=== PATIENT | male | born 1950 ===

== ENCOUNTER → 2018-08-24 | Day surgery (SDC) | payer MEDICARE, BC ==
[~2018-08-24] MED LIST: Dextrose 5%-0.45% NaCl 1,000 ML IV SCH; Midazolam 1 MG/ML 2 ML SDV IV ONE; Midazolam 1 MG/ML 2 ML SDV ONE; fentaNYL 100 MCG/2 ML SDV IV ONE; fentaNYL 100 MCG/2 ML SDV ONE
--- NOTE | 2018-08-24 18:07 | OR ---
DATE: 08/24/2018 PREOPERATIVE DIAGNOSIS: Personal history of prior colon polyps. POSTOPERATIVE DIAGNOSIS: Personal history of prior colon polyps. PROCEDURE: Total colonoscopy with biopsy, excision of small rectal polyp. ANESTHESIA: Conscious sedation. SPECIMEN: Rectal polyp. FINDINGS: He had 1 small 2 mm rectal polyp and has internal hemorrhoids and a few scattered sigmoid diverticula which should be of no specific consequence. RECOMMENDATION: Followup colonoscopy 5 years. INDICATION FOR PROCEDURE: This 68-year-old male has had prior colon polyps. PROCEDURE IN DETAIL: After adequate preparation, a colonoscope was inserted into the rectum this was easily passed all the way to the cecum. Confirmation of the cecum was made by visualization of the ileocecal valve on palpation in the right lower quadrant. The bowel prep was very good. On withdrawal of the scope, the only abnormality noted were a few scattered diverticula throughout the colon, mostly in the left to the sigmoid side. However, in the rectum, he does have 1 small polyp on the inferior rectal valve. This was taken off using a biopsy cup forceps and extracting this with 2 biopsy bites. He does have some internal hemorrhoids. Also, no other gross abnormalities were noted. Air was suctioned from the colon, and the scope removed. [facility] /[id number]
== END ==
LOC: DL.ENDO 09:02
PROVIDERS: ATTEND Surgery
DX: Z12.11 Encounter for screening for malignant neoplasm of colon (principal); K62.89 Other specified diseases of anus and rectum; K57.30 Diverticulosis of large intestine without perforation or abscess without bleeding; K64.8 Other hemorrhoids; I10 Essential (primary) hypertension; Z86.010 Personal history of colon polyps; Z79.84 Long term (current) use of oral hypoglycemic drugs; Z79.82 Long term (current) use of aspirin; Z79.899 Other long term (current) drug therapy
CPT/HCPCS: 45380; J2250; J3010; J7042; 88305

== ENCOUNTER → 2018-10-03 | Outpatient (CLI) | payer MEDICARE, BC | LOC: DL.CLIN 08:30 | CPT/HCPCS: 99213 ==